=== PATIENT | male | born 1980 | race Caucasian/White ===

== ENCOUNTER 2020-01-06 11:42 | Outpatient (CLI) | payer BC, SELFPAY ==
--- NOTE | ~2020-01-06 | US_ITS ---
EXAMINATION: US soft tissue groin RT DATE: 01/06/2020 12:21 INDICATION: Right groin pain. TECHNIQUE: Multiple grayscale and Doppler ultrasound images of the right inguinal region were obtaine dVickie COMPARISON: None FINDINGS: There is no abnormal mass, hernia, or lymphadenopathy in the right inguinal region. IMPRESSION: 1. No abnormality in the right inguinal region. Reviewed, dictated and finalized at location A.
--- NOTE | ~2020-01-06 | US_ITS ---
EXAMINATION: US scrotum doppler DATE: 01/06/2020 12:25 INDICATION: Low abdominal pain. TECHNIQUE: Grayscale and Doppler ultrasound images of the testes were obtained. COMPARISON: None. FINDINGS: The right testis measures 5.0 x 3.0 x 2.3 cm. The left testis measures 4.5 x 3.2 x 2.7 cm. There is normal vascular flow to both testes. The right epididymis is normal with normal vascular emerald w. The left epididymis is normal with normal vascular flow. There is no varicocele or hydrocele. IMPRESSION: 1. Normal testes. Reviewed, dictated and finalized at location A. IMPRESSION: 1. Normal testes.
--- NOTE | ~2020-01-06 | XR_ITS ---
EXAMINATION: XR hip RT min 2V DATE: 01/06/2020 12:13 INDICATION: Right hip pain. TECHNIQUE: 3 views of right hip were obtained. COMPARISON: None. FINDINGS: Bone alignment is normal. No fracture. Right hip joint space is normal. IMPRESSION: 1. Normal right hip. Reviewed, dictated and finalized at location A. IMPRESSION: 1. Normal right hip.
== END 2020-01-06 11:43 | disposition home or self-care (01) ==
PROVIDERS: PCP Family Medicine; Visit Provider Nurse Practitioner Family
DX: R10.30 Lower abdominal pain, unspecified (principal); M25.551 Pain in right hip
CPT/HCPCS: 73502; 76870; 76882; 93976

== ENCOUNTER 2021-12-27 01:20 | Day surgery (SDC) | payer BC, SELFPAY ==
[2021-12-10 14:56] VITALS: BMI 26.2
--- NOTE | 2021-12-26 15:28 | PM.HPGS ---
History of Present Illness History of Present Illness Consent: Risks, benefits, and alternatives have been discussed and questions answered. Patient agrees to proceed with procedure. Chief complaint: Candelario's Esophagus Narrative: Suly Gan is a 41 year old male With a history of Candelario's esophagus. He was last examined a little over 2 years ago. Review of Systems Review of Systems: All systems reviewed & are unremarkable except as noted in HPI and below PMFSH Past Medical History Medical History Barretts esophagus BMI 26.0-26.9,adult BMI 27.0-27.9,adult CAITLIN (obstructive sleep apnea) Family History Family History Grandparent Family history of Parkinson's disease Family history of malignant neoplasm of brain Other Family history of malignant neoplasm Social History Social History Smoking status: Former smoker Tobacco type: cigarettes Second hand tobacco smoke exposure: Yes Additional smoking assessment comments: QUIT SMOKING IN 2003. ONLY SMOKED FOR 6 MONTHS A JUST A COUPLE OF CIGS PD. Alcohol intake: current Drinks per week: 3 Substance use: never Substance use type: does not use Living arrangements: with family Gender identity (if verbalized by the patient): Male Sexual Orientation (if Verbalized by the Patient): Straight or Heterosexual Spiritual care concerns: No Agree to blood products: Yes Meds Home Medications and Allergies Home Medications Medication Instructions Recorded Confirmed Type lactobacillus combination no.8 3 3,000 mmu cells PO DAILY 01/20/19 12/19/21 History billion cell capsule (Adult Probiotic) omeprazole 20 mg capsule,delayed 20 mg PO BID #180 caps 01/06/20 12/19/21 Rx release Saccharomyces boulardii 250 mg 250 mg PO BID #60 caps 12/11/21 12/27/21 Rx capsule (Florastor) Allergies Allergy/AdvReac Type Severity Reaction Status Date / Time No Known Allergies Allergy Verified 12/27/21 09:21 Exam Const: General: alert Orientation/consciousness: patient oriented x3 Resp: Auscultation: clear to auscultation bilaterally Cardio: Rhythm: regular rhythm GI: GI Palp: Yes Soft to palpation and No Tenderness to palpation present (GI) Neuro: General: patient oriented x3 Assessment and Plan Assessment and plan (1) Barretts esophagus: Qualifiers: Candelario's esophagus type: without dysplasia Qualified Code(s): K22.70 - Candelario's esophagus without dysplasia Code(s): K22.70 - Candelario's esophagus without dysplasia Status: Acute Assessment and Plan: EGD with possible biopsy or dilatation or cautery.
[2021-12-27 09:23] VITALS: BP 123/77; PULSE 62; RESP 20; TEMP 36.3; O2SAT 100
[2021-12-27] MEDS: LACTATED RINGERS 1,000 ML 150 ML IV CONT (09:30)
--- NOTE | 2021-12-27 10:09 | P.PNAN_ITS ---
Anes - Initial Pre Proc Eval Procedure: Operation Date: 12/27/21 10:00 Proposed Procedures p Esophagogastroduodenoscopy - Malcom Mahmood MD Date/Time: 12/27/21 10:09 Surgeon: Malcom Mahmood MD Pre Op Diagnosis: Candelario's Esophagus Patient Data Age: 41 Gender: M Height: 1.85 m Weight: 87.6 kg Last Vital Signs Temp 97.4 F L 12/27/21 09:23 Pulse 62 12/27/21 09:23 Resp 20 12/27/21 09:23 BP 123/77 12/27/21 09:23 Pulse Ox 100 12/27/21 09:23 O2 Del Method Room Air 12/27/21 09:23 Allergies Allergy/AdvReac Type Severity Reaction Status Date / Time No Known Allergies Allergy Verified 12/27/21 09:21 Home Medications Medication Instructions Recorded Confirmed Type lactobacillus combination no.8 3 3,000 mmu cells PO DAILY 01/20/19 12/19/21 History billion cell capsule (Adult Probiotic) omeprazole 20 mg capsule,delayed 20 mg PO BID #180 caps 01/06/20 12/19/21 Rx release Saccharomyces boulardii 250 mg 250 mg PO BID #60 caps 12/11/21 12/27/21 Rx capsule (Florastor) Patient hx anesthesia problems: none Family hx anesthesia problems: none Results Review: All pre-operative results and documents have been reviewed as part of the pre- operative evaluation. [facility] Past Medical History Medical History Barretts esophagus BMI 26.0-26.9,adult BMI 27.0-27.9,adult CAITLIN (obstructive sleep apnea) Family History Family History Grandparent Family history of Parkinson's disease Family history of malignant neoplasm of brain Other Family history of malignant neoplasm Social History Social History Smoking status: Former smoker Tobacco type: cigarettes Second hand tobacco smoke exposure: Yes Additional smoking assessment comments: QUIT SMOKING IN 2003. ONLY SMOKED FOR 6 MONTHS A JUST A COUPLE OF CIGS PD. Alcohol intake: current Drinks per week: 3 Substance use: never Substance use type: does not use Living arrangements: with family Gender identity (if verbalized by the patient): Male Sexual Orientation (if Verbalized by the Patient): Straight or Heterosexual Spiritual care concerns: No Agree to blood products: Yes Anes - Eval Final PreProcedure Day of Procedure 12/27/21 10:09 Patient weight: normal Heart: regular rate and rhythm Lungs: clear to auscultation Airway: Mallampati scale class II Neurological: alert and oriented Last oral intake: >/= 8 hours ASA classification: II Emergent: no Anesthetic plan: proceed Anesthesia type and monitoring: general GIVS and standard monitoring Results Review: All pre-operative results and documents have been reviewed as part of the pre- operative evaluation. Informed Consent: The patient's anesthetic plan and its attendant risks and benefits were discussed with the patient/family/POA. Questions were solicited and answers provided to the satisfaction of the patient/family/POA.
[2021-12-27 10:22] VITALS: BP 104/72; PULSE 70; RESP 16; O2SAT 100
[2021-12-27 10:32] VITALS: BP 128/85; PULSE 61; RESP 17; O2SAT 100
[2021-12-27 10:42] VITALS: BP 115/78; PULSE 52; RESP 14; O2SAT 100
== END 2021-12-27 10:58 | disposition home or self-care (01) ==
PROVIDERS: PCP Family Medicine; Visit Provider Internal Medicine Gastroenterology
PROC: 0DJ08ZZ Inspection of Upper Intestinal Tract, Via Natural or Artificial Opening Endoscopic (ICD-10-PCS; CPT 43235; principal; 2021-12-27 10:00)
DX: K22.70 Barrett's esophagus without dysplasia (principal); K21.00 Gastro-esophageal reflux disease with esophagitis, without bleeding; G47.33 Obstructive sleep apnea (adult) (pediatric); Z87.891 Personal history of nicotine dependence
CPT/HCPCS: 43239; 88305; J2704; J7120

== ENCOUNTER 2022-03-06 08:24 | Outpatient (CLI) | payer BC, SELFPAY ==
--- NOTE | 2022-04-02 18:34 | WPDSLEEPSTUD ---
Sleep Study Date of Study: 03/06/22 Ordering Provider: Diego Keenan MD Interpreting Physician: Rosa Elena De La Rosa MD Sleep Study Type: Polysomnogram Height: 1.83 m Weight: 88.451 kg Body Mass Index: 26.4 Neck Circumference (inches): 16 [place]: 7 Reason for Sleep Study The patient has a diagnosis of obstructive sleep apnea, previously used BiPAP 16/12, has had problems with mask fit, wants to try other options, possibly oral device. * Sleep study on October 19, 2015 body mass index was 26, he had snoring and woke up choking at night. He had severe obstructive sleep apnea, the apnea-hypopnea index was 31 with multiple oxygen desaturations, minimum saturation 77%. He had the emergence of central apneas during the titration. His final pressure was 16/12. Sleep History Suly Gan is a 41-year-old man with a history of sleep apnea who has worn BiPAP 16/12 in the past. His sleep study was in 2015 and his BMI was 26, exactly what it is now. His dentist recommended a sleep study. His current mask does not fit well and it leaks. His quality of sleep is poor and it is getting worse each year. His past medical history is significant for Candelario esophagus and GERD. His ENT note by Dr. 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 He also has suspected allergic rhinitis. The patient was prescribed Flonase, Astelin, Zyrtec, and Singulair. He was start on saline nasal irrigations. Oral appliance was discussed, Slumber Pro or Snore Rx. Allergy testing was ordered. Discussion including surgery was discussed with consideration of a turbinate reduction, Airlift, UPPP or possible Inspire device. The patient's sleep questionnaire was not available, possibly was not completed prior to arrival at the sleep lab. History is obtained from these collateral sources. He has good compliance with BiPAP despite the poor fit of his mask. He told his ENT that he benefitted from using PAP, but wanted to know what his other options were. His previous sleep complaints included loud snoring and occasionally waking up choking. he had frequent excessive sweating at night and occasional heart palpitations. He did not have loss of muscle tone with strong emotion. Occasionally has daytime difficulties at work due to excessive sleepiness. He did not have sleep paralysis. He did not have vivid dreamlike scenes on waking or falling asleep. He did not have crawling or aching feelings in his legs. [facility] Past Medical History Medical History Barretts esophagus BMI 26.0-26.9,adult BMI 27.0-27.9,adult CAITLIN (obstructive sleep apnea) Family History Family History Grandparent Family history of Parkinson's disease Family history of malignant neoplasm of brain Father No problems noted. Mother No problems noted. Sibling Diabetes mellitus Other Family history of malignant neoplasm Social History Social History Smoking status: Former smoker Tobacco type: cigarettes Second hand tobacco smoke exposure: Yes Additional smoking assessment comments: QUIT SMOKING IN 2003. ONLY SMOKED FOR 6 MONTHS A JUST A COUPLE OF CIGS PD. Alcohol intake: current Drinks per week: 3 Substance use: never Substance use type: does not use Lack of Transportation: No Lack of Food: Never True Current Housing: I Have Housing Concerned About Future Housing: No Difficulty Paying Gas/Electric Bills: No Difficulty Paying for Meds: No Currently Unemployed: No Education: Bachelor's Degree Difficulty w/ Childcare or Family Care: No Additional occupation/education comments: Sales Gender identity (if verbalized by th
[2022-04-02 18:36] VITALS: BMI 26.4
== END 2022-03-07 06:18 | disposition home or self-care (01) ==
LOC: ANHCSM 08:27
PROVIDERS: PCP Family Medicine; Visit Provider Family Medicine
DX: G47.33 Obstructive sleep apnea (adult) (pediatric) (principal)
CPT/HCPCS: 95810

== ENCOUNTER → 2023-02-12 14:45 | Outpatient (CLI) | payer OTHER, SELFPAY ==
--- NOTE | ~2023-02-12 | XR_ITS ---
EXAM: XR knee RT 3V DATE: 02/12/2023 15:05 HISTORY: M25.569 - Pain in unspecified knee . COMPARISON: None available. FINDINGS: Normal mineralization. No fracture or dislocation. No lytic or blastic lesion. Mild medial compartment narrowing. Mild tricompartmental osteophytosis. No erosion or periosteal change. Soft ti ssues within normal limits. IMPRESSION: Tricompartmental osteoarthritis of the right knee, mild-moderate in the medial compartmen t. Reviewed, dictated and finalized at location K. ICAL CARE PHYSICIAN IMPRESSION: Tricompartmental osteoarthritis of the right knee, mild-moderate in the medial compartment.
== END ==
PROVIDERS: PCP Nurse Practitioner Family; Visit Provider Nurse Practitioner Family
DX: M25.561 Pain in right knee (principal); M17.11 Unilateral primary osteoarthritis, right knee
CPT/HCPCS: 73562

== ENCOUNTER 2024-10-27 08:53 | Outpatient (CLI) | payer OTHER, SELFPAY ==
--- NOTE | 2024-10-27 08:59 | ECHO_ITS ---
Patient Info Name: Suly Gan Age: 44 years : 1980 Gender: Male Ht: 72 in Wt: 195 lbs BSA: 2.13 m2 HR: 51 bpm BP: 142 / 79 mmHg Technical Quality: Good Exam Date: 10/27/2024 9:15 AM Patient Status: O Admit Date: 10/27/2024 Exam Type: CA echo doppler color flow Complete two-dimensional, color flow and Doppler transthoracic echocardiogram is performed. Contact And Service Clerks Supervisor: Shante Payne Attending Provider: Mercy Jacobsen Summary 1. Complete two-dimensional, color flow and Doppler transthoracic echocardiogram is performed. 2. Left ventricular chamber dimension is normal. 3. Left ventricular systolic function is normal, estimated at 60-65. 4. The left ventricular diastolic function is normal. 5. E/e' 5 is not elevated. 6. There is trace mitral valve regurgitation. 7. There is trace tricuspid valve regurgitation. 8. No pulmonary hypertension, estimated pulmonary arterial systolic pressure is 22 mmHg. 9. There is trace pulmonic regurgitation. 10. Dilated inferior vena cava with >50% collapse upon inspiration consistent with elevated right atrial pressure, 10 mmHg. Left Ventricle E/e' 5 is not elevated. Left ventricular chamber dimension is normal. Left ventricular systolic function is normal, estimated at 60-65. The left ventricular diastolic function is normal. Right Ventricle Right ventricular chamber dimension is normal. Right ventricular systolic function is normal. Left Atria Left atrial chamber dimension is normal. Right Atria Right atrial chamber dimension is normal. Aortic Valve The aortic valve is trileaflet. There is no aortic valve stenosis. There is no aortic valve regurgitation. Pulmonic Valve There is trace pulmonic regurgitation. Mitral Valve There is no mitral valve stenosis. There is trace mitral valve regurgitation. Tricuspid Valve There is trace tricuspid valve regurgitation. No pulmonary hypertension, estimated pulmonary arterial systolic pressure is 22 mmHg. Pericardium/Pleural There is no pericardial effusion. Inferior Vena Cava Dilated inferior vena cava with >50% collapse upon inspiration consistent with elevated right atrial pressure, 10 mmHg. Aorta The aortic root size at the sinus of Valsalva is normal. Left Ventricular Outflow Tract Name Value Normal LVOT 2D LVOT Diameter 2.5 cm LVOT Doppler LVOT Peak Velocity 98 cm/s LVOT Peak Gradient 4 mmHg LVOT Mean Gradient 2 mmHg LVOT VTI 25 cm LVOT Stroke Volume 129 ml LVOT CO 6.5 l/min LVOT CI 3.1 l/min/m2 Pulmonic Valve Name Value Normal RVOT Doppler RVOT Peak Velocity 81 cm/s RVOT Peak Gradient 3 mmHg PV Doppler PV Peak Velocity 99 cm/s PV Peak Gradient 4 mmHg Mitral Valve Name Value Normal MV Diastolic Function MV E Peak Velocity 81 cm/s MV A Peak Velocity 49 cm/s MV E/A 1.6 MV Decel Time (PW) 267 ms MV Annular TDI MV E/e' (Septal) 8.2 MV E/e' (Lateral) 4.4 MV E/e' (Average) 6.3 Tricuspid Valve Name Value Normal TV Regurgitation Doppler TR Peak Velocity 175 cm/s TR Peak Gradient 12 mmHg Estimated PAP/RSVP RA Pressure 10 mmHg <=5 PA Systolic Pressure 22 mmHg <36 RV Systolic Pressure 22 mmHg <36 Aortic Valve Name Value Normal AV Doppler AV Peak Velocity 154 cm/s AV Peak Gradient 10 mmHg AV Area (Cont Eq Dylan) 3.2 cm2 AV DI (Dylan) 0.64 AV Regurgitation 2D LVOT Area 5.1 cm2 Ventricles Name Value Normal LV Dimensions 2D/MM IVS Diastolic Thickness (2D) 0.9 cm 0.6-1.0 LVID Diastole (2D) 5.3 cm 4.2-5.8 LVIW Diastolic Thickness (2D) 0.9 cm 0.6-1.0 LVID Systole (2D) 3.4 cm 2.5-4.0 LVOT Diameter 2.5 cm LV Mass (2D Cubed) 175.77 g 88.00-224.00 LV Mass Index (2D Cubed) 82 g/m2 49-115 Relative Wall Thickness (2D) 0.34 <=0.42 LV Fractional Shortening/Ejection Fraction 2D/MM LV Fractional Shortening (2D) 36 % 25-43 LV EF (2D Teichholz) 66 % LV Diastolic Volume (4C MOD) 139 ml LV EF (4C MOD) 60 % LV Diastolic Volume (2C MOD) 147 ml LV EF (2C MOD) 61 % LV Diastolic Volume (BP MOD) 148 ml 62-150 LV Diastolic Volume Index (BP MOD) 69 ml/m2 34-74 LV Systolic Volume (BP MOD) 57 ml 21-61 LV Systolic Volume Index (BP MOD) 27 ml/m2 11-31 LV EF (BP MOD) 62 % 52-72 LV Diastolic Length (4C) 9.5 cm LV Systolic Length (4C) 7.4 cm LV Stroke Volume (4C MOD) 84 ml Atria Name Value Normal LA Dimensions LA Volume (4C A-L) 35 ml LA Volume (BP A-L) 50 ml RA Dimensions RA Systolic [place] Length (4C) 4.7 cm 2.1-2.7 RA Area (4C) 14.7 cm2 <=18.0 Report Signatures
--- OUTSIDE RECORDS SUMMARY | 2024-10-27 09:12 | XMS_ITS | Clinical Summary ---
Author Organization [email or web address] Address [address] [address] Care Team Providers Care Machine Technician Name Role Phone Diego Keenan MD Primary Care Provider [phone] Source Comments [email or web address],non-owned Affiliates and Associated Physician Practices is amultiple site organization consisting of ambulatory clinics and hospital sitesin [place], [place], [place] and [place]. This disclosure is being madepursuant to the Care Everywhere program and may not contain all information available regarding this patient. Last updated 17.[email or web address] Allergies No known active allergies Medications * Be aware that medications may not be up to date on this document. Alwaysverify current medications with the patient. Ascorbic Acid (VITAMIN C) 100 MG Take 1 (one) tablet by mouth once daily Active vitamin D3 (CHOLECALCIFERO L) 25 MCG (1000 UNITS) tablet Take 1 (one) tablet by mouth once daily Active B Complex Vitamins (VITAMIN B COMPLEX PO) Take 1 tablet by mouth once daily Active azelastine (Astelin) 0.1 % nasal spray [place] 1 (one) spray into each nostril 2 times daily 30 mL 3 2 Active fluticasone propionate (Flonase) 50 MCG/ACT nasal spray [place] 2 (two) sprays into each nostril once daily 16 g 11 5 Active omeprazole (PriLOSEC) 20 MG capsule Take 1 (one) capsule by mouth 2 times daily 180 capsule 3 5 Active azelastine (Astelin) 0.1 % nasal spray [place] 1 (one) spray into each nostril 2 times daily 30 mL 11 5 Active oxyCODONE, immediate release, (Roxicodone) 5 MG tabletIndicatio ns:CAITLIN (obstructive sleep apnea) Take 1 (one) tablet by mouth every 6 hours as needed for Pain 12 tablet 4 09/29/19 25 Discontinu ed(List Clean-Up) Active Problems No known active problems Encounters Date Type Department Care Team Description 09/28/2024 9:45 AM CDT Office Visit [facility] - ENT [address] [place] [phone] Darrel Munoz MD CAITLIN (obstructive sleep apnea) (Primary Dx); Chronic throat pain; Ear fullness, right; Allergic rhinitis, unspecified seasonality, unspecified trigger; Gastroesophageal reflux disease without esophagitis; Gastroesophageal reflux disease, unspecified whether esophagitis present 09/28/2024 Travel 09/21/2024 Travel from Last 3 Months Immunizations Immunization Administration Dates Next Due DTP, HISTORIC VACCINE 11/22/1986,02/24/1984,07/1982,02/08/1982,1981 MMR VACCINE 01/15/1983 POLIO OPV 11/22/1986,02/24/1984,03/28/1982 ,02/08/1982,1981 Family History Medical History Relation Name Comments Arthritis - Rheumatoid Mother Diabetes - Type 2 Sister Relation Name Status Comments Mother Sister Social History Tobacco Use Types Packs/Day Years Used Date Smoking Tobacco: Never Smokeless Tobacco: Never Tobacco Cessation:Counseling Given: Not Answered Alcohol Use Standard Drinks/Week Comments Yes 3 (1 standard drink = 0.6 oz pur e alcohol) AUDIT-C Answer Date Recorded Q1: How often do you have a drink containing alcohol? 4 or more times a week 02/23/2024 Q2: How many drinks containi ng alcohol do you have on a typical day when you are drinking? 3 or 4 Q3: How often do you have si x or more drinks on one occasion? Never 02/23/2024 Sex and Gender Information Value Date Recorded Sex Assigned at Not on file Legal Sex Male 5:36 PM INSIDE SALES RECRUITER Gender Identity Not on file Sexual Orientation Not on file Last Filed Vital Signs Vital Sign Reading Time Taken Comments Blood Pressure 126/80 09/28/2024 9:17 AM CDT Pulse 53 09/28/2024 9:17 AM CDT Temperature 36 C (96.8 F) 02/23/2024 5:16 PM INSIDE SALES RECRUITER Respiratory Rate 9 02/23/2024 5:45 PM INSIDE SALES RECRUITER Oxygen Saturation 99% 02/23/2024 5:45 PM INSIDE SALES RECRUITER Inhaled Oxygen Concentration - - Weight 90.7 kg (200 lb) 09/28/2024 9:17 AM CDT Height 182.9 cm (6') 09/28/2024 9:17 AM CDT Body Mass Index 27.12 09/28/2024 9:17 AM CDT Plan of Treatment Health Maintenance Due Date Last Done Comments LIPID TESTING 1980 DTAP/TDAP/TD VACCINES (6 - Tdap) 1992 11/22/1986, 02/24/1984, 03/28/1982, Additional history exists HIV SCREENING 1996 HEPATITIS C SCREENING 08/27/1999 HEPATITIS B VACCINE (1 of 3 - 19+ 3-dose series) 2000 HPV VACCINE (1 - 3-dose SCDM series) 2008 COVID-19 VACCINE ( season) 2023 DEPRESSION SCREENING 03/24/2024 INFLUENZA VACCINE (#1) 2024 SCREENING FOR DIABETES 02/16/2027 02/17/2024 ZOSTER VACCINE (1 of 2) 09/01/2031 HIB VACCINE Aged Out No longer eligi ble based on patient's age to complete this topic MENINGOCOCCAL (Group B) VACCINE SHARED DECISION-MAKING Aged Out No longer eligible based on patient's age to complete this topic MENINGOCOCCAL GROUPS A/C/Y/W VACCINE Aged Out No longer eligible based on patient's age to complete this topic PNEUMOCOCCAL VACCINE Aged Out No long er eligible based on patient's age to complete this topic Procedures Procedure Name Priority Date/Time Associated Diagnosis Comments BASIC METABOLIC PANEL (CALCIUM TOTAL) Routine 02/17/2024 9:10 AM INSIDE SAL[employer] RECRUITER Pre-op exam from Last 3 Months or Most Recently Relevant to Health Maintenance Results * (ABNORMAL) BASIC METABOLIC PANEL (CALCIUM TOTAL) (02/17/2024 9:10 AM [facility]) BUN 20 7 - 26 mg/dL 02/17/2024 10:17 AM [facility] Creatinine 1.12 0.71 - 1.16 mg/dL 02/17/2024 10:17 AM [facility] Sodium 142 136 - 145 mmol/L 02/17/2024 10:17 AM [facility] Potassium 4.1 3.5 - 4.5 mmol/L 02/17/2024 10:17 AM [facility] Chloride 103 98 - 107 mmol/L 02/17/2024 10:17 AM [facility] CO2 26 22 - 29 mmol/L 02/17/2024 10:17 AM [facility] Glucose 102(H) 70 - 99 mg/dL 02/17/2024 10:17 AM [facility] Calcium 9.7 8.4 - 10.2 mg/dL 02/17/2024 10:17 AM [facility] Anion Gap 13 6 - 16 02/17/2024 10:17 AM [facility] BUN/Creatinine Ratio 18 7 - 23 02/17/2024 10:17 AM [facility] Osmolality Calculated 297(H) 275 - 295 mOsm/kg 02/17/2024 10:17 AM [facility] eGFR by CKD-EPI 84(L) >=90 mL/min/1.7 3 m2 02/17/2024 10:17 AM [facility] Blood BLOOD SPECIMEN / Unknown Lab Venipuncture / Unknown 02/17/2024 9:10 AM [facility] 02/17/2024 9:37 AM [facility] us Margaret Lewis [employer] TEACHER-RN CARDIOVASCULAR ICU LAB - CHEMISTRY ORDERABL ES Final Result [facility] [address] [place] [address], [facility] [phone] from Last 3 Months or Most Recently Relevant to Health Maintenance Insurance [place] [address] Care Teams Machine Technician Relationship Specialty Start Date End Date Diego Keenan MD [address] [place] [id number] PCP - General 02/26/19
== END 2024-10-27 08:54 | disposition home or self-care (01) ==
LOC: ANHCARD 08:57
PROVIDERS: PCP Family Medicine; Visit Provider Nurse Practitioner Family
DX: R93.1 Abnormal findings on diagnostic imaging of heart and coronary circulation (principal)
CPT/HCPCS: 93306

== ENCOUNTER 2024-12-14 13:50 | Outpatient (CLI) | payer OTHER, SELFPAY ==
--- NOTE | ~2024-12-14 | MR_ITS ---
EXAMINATION: MR brain/brain stem wo/w con DATE: 12/14/2024 14:29 INDICATION: Persistent migraines TECHNIQUE: Magnetic resonance imaging (MRI) of the brain and brainstem was performed without and with 18 mL Multihance intravenous contrast. Sequences included sagittal and axial T1-weighted SE, axial diffusion-weighted FS SE, axial T2*-weighted GRE, axial T2-weighted FLAIR, and axial T2-weighted FSE. Postcontrast axial and coronal T1-weighted SE was obtained. Apparent diffusion coefficient (ADC) maps were created. COMPARISON: None. FINDINGS: There are no areas of restricted diffusion to suggest acute infarction. No intracranial hemorrhage or abnormal intracranial mass lesion. There are no intraparenchymal signal abnormalities seen on the other pulse sequences. The ventricles are symmetric and normal in size. There are no abnormal extra-axial fluid collections. Flow voids are seen in the cerebral arteries on the T2- weighted sequences consistent with their expected patency. Mucosal thickening in the bilateral maxillary and ethmoid sinuses. Visualized orbits and soft tissues are unremarkable. There are no areas of abnormal enhancement on the post contrast images. IMPRESSION: 1. Normal brain. No acute intracranial process or abnormally enhancing brain lesions. Reviewed, dictated and finalized at location A. IMPRESSION: 1. Normal brain. No acute intracranial process or abnormally enhancing brain le sions.
== END 2024-12-14 13:51 | disposition home or self-care (01) ==
PROVIDERS: PCP Family Medicine
DX: G43.509 Persistent migraine aura without cerebral infarction, not intractable, without status migrainosus (principal); Z80.8 Family history of malignant neoplasm of other organs or systems; H53.9 Unspecified visual disturbance
CPT/HCPCS: 70553; A9577

== ENCOUNTER 2025-03-22 00:41 | Day surgery (SDC) | payer OTHER, SELFPAY ==
[2025-03-02 13:35] VITALS: BMI 26.4
--- OUTSIDE RECORDS SUMMARY | 2025-03-22 00:45 | XMS_ITS | Clinical Summary ---
Author Organization [facility] Address [address] [place] [id number] Care Team Providers Care Roasterman Name Role Phone Diego Keenan MD Primary Care Provider + [phone] Allergies No known active allergies Medications omeprazole (PriLOSEC) 20 mg capsule Take 1 capsule (20 mg total) by mouth 2 (two) times a day 04/06/2024 Active Active Problems Problem Noted Date Diagnosed Date Palpitations 01/13/2025 Encounters Date Type Department Care Team Description 01/29/2025 12:25 PM AUDIO VISUAL COLLECTIONS COORDINATOR - 01/29/2025 1:[address] [facility] Emergency [facility] Emergency Department [address] [place] [address] Nicolas Banda MD Head injury, initial encounter (Primary Dx); Abrasion, scalp w/o infection Discharge Disposition: Discharge to home or self care 01/13/2025 2:30 PM CDT Office Visit [facility] Cardiology at [address] [place] [address] Marcus Garcia MD Palpitations (Primary Dx) from Last 3 Months Medical History Medical History Date Comments Arrhythmia Family History Medical History Relation Name Comments Cancer Father Cancer Mother Hypertension Mother Diabetes Sister Relation Name Status Comments Father Alive Mother Alive Sister Alive Social History Tobacco Use Types Packs/Day Years Used Date Smoking Tobacco: Never Smokeless Tobacco: Never Alcohol Use Standard Drinks/Week Comments Yes 0 (1 standard drink = 0.6 oz pur e alcohol) Personal Safety Answer Date Recorded Have you ever been in or are you currently in a harmful physical or emotional relationship or is someone making you feel afraid or unsafe? Denies 01/29/2025 Sex and Gender Information Value Date Recorded Sex Assigned at Not on file Legal Sex Male 11:09 AM AUDIO VISUAL COLLECTIONS COORDINATOR Gender Identity Not on file Sexual Orientation Not on file Last Filed Vital Signs Vital Sign Reading Time Taken Comments Blood Pressure 124/88 01/29/2025 1:17 PM AUDIO VISUAL COLLECTIONS COORDINATOR Pulse 75 01/29/2025 1:17 PM AUDIO VISUAL COLLECTIONS COORDINATOR Temperature 36.2 C (97.2 F) 01/29/2025 12:08 PM AUDIO VISUAL COLLECTIONS COORDINATOR Respiratory Rate 18 01/29/2025 1:17 PM AUDIO VISUAL COLLECTIONS COORDINATOR Oxygen Saturation 100% 01/29/2025 1:17 PM AUDIO VISUAL COLLECTIONS COORDINATOR Inhaled Oxygen Concentration - - Weight 86.2 kg (190 lb) 01/29/2025 12:08 PM AUDIO VISUAL COLLECTIONS COORDINATOR Height 182.9 cm (6') 01/13/2025 2:20 PM CDT Body Mass Index 25.77 01/13/2025 2:20 PM CDT Plan of Treatment Health Maintenance Due Date Last Done Comments Depression Screening 1980 Hepatitis C Screening 1980 DTaP/Tdap/Td Vaccine (6 - Tdap) 1992 11/22/1986, 02/24/1984, 03/28/1982, Additional history exists Varicella Vaccines (1 of 2 - 13+ 2-dose series) 1994 Hepatitis B Screening 09/01/1999 Regular Well Visit/Exam 18-64 09/01/1999 HPV Vaccines (1 - 3-dose SCDM series) 2008 Influenza Vaccine (#1) 2024 01/10/2016 Pneumococcal vaccine <65 Aged Out No longer eligible based on patient's age to complete this topic Procedures Procedure Name Priority Date/Time Associated Diagnosis Comments ECG 12-LEAD Routine 01/13/2025 2:25 PM CDT Palpitations from Last 3 Months Results * ECG 12 lead (01/13/2025 2:25 PM CDT) us Marcus Garcia MD ECG ORDERABLES Edited R esult - Final from Last 3 Months Insurance ANTH [facility] Care Teams Roasterman Relationship Specialty Start Date End Date Diego Keenan MD PCP - General Family Medicine 04/09/18
[2025-03-22 06:20] VITALS: BP 119/79; PULSE 52; RESP 16; TEMP 36.1; O2SAT 100; BMI 27.1
[2025-03-22] MEDS: LACTATED RINGERS 1,000 ML 150 ML IV CONT (06:25)
--- NOTE | 2025-03-22 07:09 | P.PNAN_ITS ---
Anes - Initial Pre Proc Eval Procedure: Operation Date: 03/22/25 07:30 Proposed Procedures p EGD & Diagnostic Colonoscopy - Frank Vergara MD Date/Time: 03/22/25 07:09 Surgeon: Frank Vergara MD Patient Data Age: 44 Gender: M Height: 1.83 m Weight: 90.9 kg Last Vital Signs Temp 36.1 C L 03/22/25 06:20 Pulse 52 L 03/22/25 06:20 Resp 16 03/22/25 06:20 BP 119/79 03/22/25 06:20 Pulse Ox 100 03/22/25 06:20 O2 Del Method Room Air 03/22/25 06:20 Allergies Allergy/AdvReac Type Severity Reaction Status Date / Time No Known Allergies Allergy Verified 03/22/25 06:19 Home Medications ?Medication ?Instructions ?Recorded ?Confirmed ?Type omeprazole 20 mg capsule,delayed mg PO DAILY 03/02/25 03/09/25 History release thiamine HCl (vitamin B1) 50 mg 50 mg PO ONCE 03/02/25 03/22/25 History tablet (Vitamin B-1) cetirizine 10 mg capsule (Zyrtec) 10 mg PO DAILY PRN a llergy symptoms 03/09/25 03/22/25 History Patient hx anesthesia problems: none Family hx anesthesia problems: none Results Review: All pre-operative results and documents have been reviewed as part of the pre- operative evaluation. [facility] Past Medical History Medical History (Updated 03/09/25 @ 12:12 by Eunice Prakash APRN) Family history of liver cancer Left hamstring muscle strain Acute knee pain Testicular pain Visual disturbance Vertigo Palpitations Chest pain Abdominal pain Left medial knee pain Groin pain Frequent UTI Encounter for screening for lipid disorder Screening cholesterol level Sleep apnea Snoring CAITLIN treated with BiPAP Allergic rhinitis due to allergen Migraines BMI 25.0-25.9,adult BMI 26.0-26.9,adult BMI 27.0-27.9,adult CAITLIN (obstructive sleep apnea) Barretts esophagus Family History Family History Grandparent Family history of Parkinson's disease Family history of malignant neoplasm of brain Father Melanoma Mother No problems noted. Sibling Diabetes mellitus Other Family history of malignant neoplasm Social History Social History Smoking status: Former smoker Tobacco type: cigarettes Second hand tobacco smoke exposure: Yes Additional smoking assessment comments: QUIT SMOKING IN 2003. ONLY SMOKED FOR 6 MONTHS A JUST A COUPLE OF CIGS PD. 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 Gender identity (if verbalized by the patient): Male Sexual Orientation (if Verbalized by the Patient): Straight or Heterosexual Spiritual care concerns: No Agree to blood products: Yes Anes - Eval Final PreProcedure Day of Procedure 03/22/25 07:09 Patient weight: overweight Heart: regular rate and rhythm Lungs: clear to auscultation Airway: Mallampati scale class II Neurological: alert and oriented Last oral intake: >/= 8 hours ASA classification: III Emergent: no Anesthetic plan: proceed Anesthesia type and monitoring: general GIVS and standard monitoring Results Review: All pre-operative results and documents have been reviewed as part of the pre- operative evaluation. Informed Consent: The patient's anesthetic plan and its attendant risks and benefits were discussed with the patient/family/POA. Questions were solicited and answers provided to the satisfaction of the patient/family/POA.
--- NOTE | 2025-03-22 07:18 | P.HP_ITS ---
History of Present Illness History of Present Illness Consent: Risks, benefits, and alternatives have been discussed and questions answered. Patient agrees to proceed with procedure. Narrative: Suly Gan is a 44 year old male Review of Systems Review of Systems: All systems reviewed & are unremarkable except as noted in HPI and below PMFSH Past Medical History Medical History (Updated 03/09/25 @ 12:12 by Eunice Prakash APRN) Family history of liver cancer Left hamstring muscle strain Acute knee pain Testicular pain Visual disturbance Vertigo Palpitations Chest pain Abdominal pain Left medial knee pain Groin pain Frequent UTI Encounter for screening for lipid disorder Screening cholesterol level Sleep apnea Snoring CAITLIN treated with BiPAP Allergic rhinitis due to allergen Migraines BMI 25.0-25.9,adult BMI 26.0-26.9,adult BMI 27.0-27.9,adult CAITLIN (obstructive sleep apnea) Barretts esophagus Family History Family History Grandparent Family history of Parkinson's disease Family history of malignant neoplasm of brain Father Melanoma Mother No problems noted. Sibling Diabetes mellitus Other Family history of malignant neoplasm Social History Social History Smoking status: Former smoker Tobacco type: cigarettes Second hand tobacco smoke exposure: Yes Additional smoking assessment comments: QUIT SMOKING IN 2003. ONLY SMOKED FOR 6 MONTHS A JUST A COUPLE OF CIGS PD. 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 Gender identity (if verbalized by the patient): Male Sexual Orientation (if Verbalized by the Patient): Straight or Heterosexual Spiritual care concerns: No Agree to blood products: Yes Meds Home Medications and Allergies Home Medications ?Medication ?Instructions ?Recorded ?Confirmed ?Type omeprazole 20 mg capsule,delayed mg PO DAILY 03/02/25 03/09/25 History release thiamine HCl (vitamin B1) 50 mg 50 mg PO ONCE 03/02/25 03/22/25 History tablet (Vitamin B-1) cetirizine 10 mg capsule (Zyrtec) 10 mg PO DAILY PRN a llergy symptoms 03/09/25 03/22/25 History Allergies Allergy/AdvReac Type Severity Reaction Status Date / Time No Known Allergies Allergy Verified 03/22/25 06:19 Vital Signs Vital Signs - 24 hr 03/22/25 06:20 Temperature 96.9 F L Pulse Rate 52 L Respiratory Rate 16 Blood Pressure 119/79 Pulse Oximetry 100 Oxygen Delivery Room Air Exam Const: General: alert Orientation/consciousness: patient oriented x3 Resp: Auscultation: clear to auscultation bilaterally Cardio: Rhythm: regular rhythm GI: GI Palp: Yes Soft to palpation and No Tenderness to palpation present (GI) Neuro: General: patient oriented x3 Assessment and Plan Assessment and plan (1) GERD with apnea: Code(s): K21.9 - Gastro-esophageal reflux disease without esophagitis; R06.81 - Apnea, not elsewhere classified Status: Acute (2) Abdominal pain: Code(s): R10.9 - Unspecified abdominal pain Status: Acute (3) Barretts esophagus: Qualifiers: Candelario's esophagus type: without dysplasia Qualified Code(s): K22.70 - Candelario's esophagus without dysplasia Code(s): K22.70 - Candelario's esophagus without dysplasia Status: Acute Plan 44-year-old male with history of Candelario esophagus. Patient also here for screening colonoscopy. Plan will be to perform upper endoscopy and colonoscopy.
[2025-03-22] MEDS: BENZOCAINE (*SP) 60 ML SPRAY CAN (HURRICAINE) 1 SPRAY MUCOUS MEM (07:35)
--- NOTE | 2025-03-22 07:44 | SUR.OPER ---
EGD ended at 738 colonoscopy started 743
--- NOTE | 2025-03-22 07:46 | S_PTH ---
PATIENT: Suly Gan LOC: [facility]#:[id number] AGE/SX: 44/M ROOM: RE03/22/[address]: Frank Vergara MD : 1980 BED: DIS: 03/22/2025 SPEC #: [id number] RECD: 03/22/25 08:00 STATUS: LUIS F FRASER #: [id number] TAMARA: 03/22/25 07:[address]: Skylar Murdock DEPT: [facility] Surgical RECD BY: Elva Kenny ENTERED: 03/22/25 08:00 SP TYPE: Surgical OTHR DR: Frank Vergara MD Diego Trell Keenan MD Tissues: A - Esophageal Biopsy Procedures: Hematoxylin and Eosin Stain Gross and Microscopic Level 4
[2025-03-22 07:56] VITALS: BP 106/67; PULSE 65; RESP 15; O2SAT 100
[2025-03-22 08:06] VITALS: BP 114/72; PULSE 68; RESP 20; O2SAT 100
[2025-03-22 08:16] VITALS: BP 121/91; PULSE 54; RESP 17; O2SAT 100
== END 2025-03-22 08:25 | disposition home or self-care (01) ==
PROVIDERS: Internal Medicine Gastroenterology; PCP Family Medicine; Referring Provider Physician Assistant Medical; Visit Provider Internal Medicine Gastroenterology
PROC: 0DJ08ZZ Inspection of Upper Intestinal Tract, Via Natural or Artificial Opening Endoscopic (ICD-10-PCS; CPT 45378; principal; 2025-03-22 07:30)
DX: K22.70 Barrett's esophagus without dysplasia (principal); K21.00 Gastro-esophageal reflux disease with esophagitis, without bleeding; K31.A0 Gastric intestinal metaplasia, unspecified; Z87.891 Personal history of nicotine dependence
CPT/HCPCS: 43239; 88305; J2003; J2704; J7120